=== PATIENT | male | born 1980 | race Asian ===

== ENCOUNTER 2016-09-26 13:43 | Emergency (ER) | payer OTHER ==
[~2016-09-26] VITALS: Ht 175.3 cm; Wt 72.6 kg
[2016-09-26 13:51] VITALS: BP 134/99; PULSE 61; RESP 16; TEMP 97.5; O2SAT 96
--- NOTE | 2016-09-26 13:58 | NUR ---
Patient to ER bed 4 to gown for evaluation. Side rails up. Report given to Carole PEREZ.
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
--- NOTE | 2016-09-26 14:20 | NUR ---
ER at bedside examining patient.
[2016-09-26] MEDS ORDERED: ACETAMINOPHEN 500 MG TABLET PO ONE (14:30)
--- NOTE | 2016-09-26 16:12 | NUR ---
Patient given written and verbal discharge instructions and verbalizes understanding. ER MD discussed with patient the results and treatment provided. Patient in stable condition. ID arm band removed. Rx of Motrin given. Patient educated on pain management and to follow up with PMD. Pain Scale 0/10. Opportunity for questions provided and answered.
[2016-09-26 16:14] VITALS: BP 126/80; PULSE 60; RESP 16; TEMP 97; O2SAT 95
== END 2016-09-26 16:14 | disposition home or self-care (01) ==
LOC: SED 13:43
DX: S09.90XA Unspecified injury of head, initial encounter (principal); V49.9XXA Car occupant (driver) (passenger) injured in unspecified traffic accident, initial encounter; Y93.89 Activity, other specified; Y92.488 Other paved roadways as the place of occurrence of the external cause; Y99.8 Other external cause status
CPT/HCPCS: 70450-TC; 99284